=== PATIENT | female | born 2000 | race Caucasian/White ===

== ENCOUNTER 2025-03-14 18:48 | Emergency (ER) | payer SELFPAY ==
[~2025-03-14] VITALS: Ht 167.6 cm; Wt 100.0 kg
[2025-03-14 19:10] VITALS: O2SAT 99
[2025-03-14 19:27] LABS: CLARITY URINE CLOUDY (CLEAR); COLOR URINE YELLOW (YELLOW); GLUCOSE URINE NEGATIVE (NEGATIVE); KETONES URINE TRACE (NEGATIVE); LEUKOCYTE ESTERASE URINE NEGATIVE (NEGATIVE); NITRITE URINE NEGATIVE (NEGATIVE); OCCULT BLOOD URINE NEGATIVE (NEGATIVE); PH URINE 5.5 (4.5-8.0); PROTEIN URINE NEGATIVE (NEGATIVE); SPECIFIC GRAVITY URINE 1.024 (1.005-1.030); UROBILINOGEN URINE 1.0 E.U./dL (0.2-1.0)
[2025-03-14 20:05] LABS: BACTERIA URINE 2+; RBC URINE 0-2 /hpf (0-2); SQUAMOUS EPITHELIAL CELL URINE 2+ /lpf (RARE/1+); WBC URINE 0-2 /hpf (0-2)
[2025-03-14 20:32] LABS: BASOPHILS % 0.6 % (0.0-2.0); EOSINOPHILS % 2.8 % (0.0-5.0); HEMATOCRIT. 35.9 % (36.0-48.0); HEMOGLOBIN. 11.6 g/dL (12.0-16.0); LYMPHOCYTES % 32.2 % (20.0-50.0); MEAN PLATELET VOLUME 10.3 fl (7.4-10.4); MONOCYTES % 4.7 % (2.0-8.0); NEUTROPHILS % 59.7 % (40.0-76.0); PLATELET 332 x1000/uL (130-400); RED BLOOD CELL COUNT 4.33 mill/uL (4.2-5.4); RED CELL DISTRIBUTION WIDTH 13.2 % (11.6-14.6)
[2025-03-14 20:35] LABS: HCG SCREEN NEGATIVE
[2025-03-14 20:39] LABS: CREATININE 0.8 mg/dL (0.6-1.0)
[2025-03-14 20:40] LABS: UREA NITROGEN BLOOD 9 mg/dL (9-23)
[2025-03-14 20:41] LABS: ASPARTATE AMINOTRANSFERASE 28 IU/L (<34)
[2025-03-14 20:42] LABS: BILIRUBIN DIRECT < 0.1 mg/dL (<=3.0); BILIRUBIN TOTAL 0.2 mg/dL (0.1-1.0); PROTEIN TOTAL 7.1 g/dL (6.0-8.3)
[2025-03-14] MEDS ORDERED: CEPH500C2 MT (21:56)
[2025-03-14 22:18] VITALS: BP 104/65; PULSE 69; RESP 14; TEMP 36.8; O2SAT 98
== END 2025-03-14 22:25 | disposition home or self-care (01) ==
LOC: ER 18:48
DX: L08.82 Omphalitis not of newborn (principal); R10.33 Periumbilical pain
CPT/HCPCS: 36415; 80048; 80076; 81003; 81025; 84703; 85025; 99283